=== PATIENT | male | born 1940 | race Caucasian/White ===

== ENCOUNTER 2017-02-15 12:03 | Outpatient (CLI) | payer MEDICARE | END 2017-02-15 12:04 | disposition short-term general hospital (02) | LOC: EMS 12:03 | PROVIDERS: ATTEND Surgery | DX: R06.00 Dyspnea, unspecified (principal); R07.81 Pleurodynia | CPT/HCPCS: A0170; A0425; A0429 ==

== ENCOUNTER 2019-01-20 10:31 | Emergency (ER) | payer MEDICARE, BC ==
--- NOTE | 2019-01-20 11:34 | ED Physician Documentation ---
PD HPI SKIN - Stated complaint Stated Complaint: L SHOULDER/NECK PX - Chief complaint Chief Complaint: Ext Problem - History obtained from History obtained from: Patient PD PAST MEDICAL HISTORY - Past Medical History Past Medical History: No - Past Surgical History Past Surgical History: Yes - Allergies Allergies/Adverse Reactions: Allergies Allergy/AdvReac Type Severity Reaction Status Date / Time No Known Drug Allergies Allergy Verified 01/20/19 10:41 - Social History Does the pt smoke?: No Smoking Status: Never smoker Does the pt drink ETOH?: Yes Does the pt have substance abuse?: No - Immunizations Immunizations: TDAP >10years/unknown Results - Vitals Vitals: Vital Signs - 24 hr 01/20/19 10:37 Temperature 36.3 C L Heart Rate 91 Respiratory 16 Rate Blood Pressure 156/97 H O2 Saturation 97 Oxygen O2 Source Room air
[2019-01-20] MEDS ORDERED: METHOCARBAMOL 500 MG TABLET PO STA (12:10)
[2019-01-20] MEDS ORDERED: NAPROXEN 250 MG TABLET PO STA (12:10)
[2019-01-20] MEDS ORDERED: traMADol 50 MG TABLET PO STA (12:10)
--- NOTE | 2019-01-20 12:10 | ED Physician Documentation ---
PD HPI NECK PAIN - Stated complaint Stated Complaint: L SHOULDER/NECK PX - Chief complaint Chief Complaint: Ext Problem - History obtained from History obtained from: Patient - History of Present Illness Timing - onset: How many days ago (few) Timing - duration: Days (few) Timing - details: Gradual onset, Still present Location: Mid, Lower, Left Quality: Pain, Sharp Associated symptoms: No: Fever, Weakness, Numbness Improves with: Rest, Other (did not take meds for it) Worsened by: Movement (of head and neck, more to side and tipping upward) Contributing factors: Other (he has had lipoma left suprascapular area for 15 years and has slowly increased size. Not acutely bigger and no redness nor direct tenderness of it.). No: Lifting, Twisting, Trauma Similar symptoms before: Has not had sx before Review of Systems Constitutional: denies: Fever, Chills, Myalgias Nose: denies: Rhinorrhea / runny nose, Congestion Throat: denies: Sore throat Respiratory: denies: Cough GI: denies: Nausea, Vomiting Musculoskeletal: reports: Neck pain (left side to left shoulder/scapular area.) Neurologic: denies: Focal weakness, Numbness, Altered mental status, Headache, Head injury PD PAST MEDICAL HISTORY - Past Medical History Past Medical History: No - Past Surgical History Past Surgical History: Yes - Present Medications Home Medications: Ambulatory Orders Medication Instructions Recorded Confirmed Methocarbamol [Robaxin] 500 mg PO TID PRN #20 tablet 01/20/19 Naproxen 500 mg PO BID #20 tablet 01/20/19 Tramadol HCl 50 mg PO Q6H PRN #15 tablet 01/20/19 - Allergies Allergies/Adverse Reactions: Allergies Allergy/AdvReac Type Severity Reaction Status Date / Time No Known Drug Allergies Allergy Verified 01/20/19 10:41 - Social History Does the pt smoke?: No Smoking Status: Never smoker Does the pt drink ETOH?: Yes Does the pt have substance abuse?: No - Immunizations Immunizations: TDAP >10years/unknown PD ED PE NORMAL - Vitals Vital signs reviewed: Yes - General General: Alert and oriented X 3, Well developed/nourished, Other (holding head and neck stiffly. He is jovial and pleasant. Appears uncomfortable with neck movement. Noticeable lipoma/lump left medial supraclavicular area. No redness nor tenderness of the area. ) - HEENT HEENT: Ears normal, Moist mucous membranes, Pharynx benign - Neck Neck: No adenopathy, Other (posterolateral neck tender at trapezius muscle and laterally to suprascapular area. Not tender at the lipoma itself. Bedside U/S showed fatty tissue appearance demarcated in the mass area c/w lipoma. No fluid collection. ) - Cardiac Cardiac: RRR, No murmur - Respiratory Respiratory: Clear bilaterally - Derm Derm: Normal color, Warm and dry, No rash - Neuro Neuro: Alert and oriented X 3, No motor deficit, No sensory deficit, Normal speech Results - Vitals Vitals: Vital Signs - 24 hr 01/20/19 01/20/19 10:37 12:40 Temperature 36.3 C L 37 C Heart Rate 91 85 Respiratory 16 16 Rate Blood Pressure 156/97 H 167/101 H O2 Saturation 97 99 Oxygen O2 Source Room air - Rads (name of study) cervical spine CT Radiology: Prelim report reviewed (mild arthritic changes; no acute process. ), See rad report PD MEDICAL DECISION MAKING - ED course Complexity details: reviewed results (some arthritic changes; no acute bony lesions/fractures. ), considered differential (the lipoma is unrelated and not tender nor infected. Has paracervical muscle pain. Pain not in dermatomal pattern to suggest pinched nerve per se. ), d/w patient Departure - Departure Disposition: 01 Home, Self Care Clinical Impression: Neck pain on left side, Lipoma of left shoulder Condition: Stable Record reviewed to determine appropriate education?: Yes Instructions: ED Neck Pain No Trauma Prescriptions: Methocarbamol [Robaxin] 500 mg PO TID PRN #20 tablet PRN Reason: Spasms Naproxen 500 mg PO BID #20 tablet Tramadol HCl 50 mg PO Q6H PRN #15 tablet PRN Reason: Pain Comments: Your CT scan of the neck showed some arthritis as expected but no significant bony abnormalities. This seems likely muscular pain radiating off to the side in the trapezius area. There may be some element of neck arthritis or disc problem originating it. We could treat this with anti-inflammatories of naproxen twice daily for the next 7 to 10 days. Take it with food. Add Robaxin muscle relaxant for stiffness and spasms. Add Tylenol and/or tramadol if needed for pains. Heat and gentle range of motion for the neck. Recheck if not improved over the next several days to week. Return if worsening. I would anticipate this to improve over the short-term and get better without any ongoing problems. Follow-up if it does not. Discharge Date/Time: 01/20/19 13:36
[2019-01-20 12:40] VITALS: BP 167/101
--- NOTE | 2019-01-20 13:04 | CT Report ---
Reason: left/central neck pain for 3 days Procedure Date: 01/20/2019 Accession Number: [id number] / [id number] Procedure: CT - CERVICAL SPINE WO CPT Code: FULL RESULT: EXAM: CT CERVICAL SPINE WITHOUT CONTRAST DATE: 01/20/2019 12:32 PM. HISTORY: Left/central neck pain for 3 days. COMPARISONS: None. TECHNIQUE: Thin-section axial images were acquired of the cervical spine without contrast. Post-processing: Coronal and sagittal reformats. Other: None. In accordance with CT protocol optimization, one or more of the following dose reduction techniques were utilized for this exam: automated exposure control, adjustment of mA and/or KV based on patient size, or use of iterative reconstructive technique. Moderate multilevel disk space narrowing throughout the cervical spine, most severe in the mid to lower cervical spine. Associated anterior posterior osteophytic spurring. There are hypertrophic changes at the facet articulations bilaterally, most conspicuous at C2-C3 and C3-C4 on the left, with associated narrowing of the neural foramina. There is mild anterior narrowing of the spinal canal secondary to posterior osteophytic spurring at C3-C4 and C4-C5. The imaged portions of the lung apices appear clear. IMPRESSION: Moderate degenerative changes of the mid to lower cervical spine, slightly more conspicuous on the left. RADIA
== END 2019-01-20 13:36 | disposition home or self-care (01) ==
LOC: ED 10:31
DX: M54.2 Cervicalgia (principal); M46.82 Other specified inflammatory spondylopathies, cervical region; D17.22 Benign lipomatous neoplasm of skin and subcutaneous tissue of left arm
CPT/HCPCS: 72125; 99284; A9270

== ENCOUNTER 2020-09-25 20:15 | Outpatient (CLI) | payer MEDICARE, BC | END 2020-09-25 20:16 | disposition critical access hospital (66) | LOC: EMS 20:15 | DX: S01.81XA Laceration without foreign body of other part of head, initial encounter (principal); V18.4XXA Pedal cycle driver injured in noncollision transport accident in traffic accident, initial encounter; Y93.55 Activity, bike riding; Y92.410 Unspecified street and highway as the place of occurrence of the external cause | CPT/HCPCS: A0425; A0427 ==

== ENCOUNTER 2020-09-25 20:49 | Emergency (ER) | payer MEDICARE, BC ==
--- OUTSIDE RECORDS SUMMARY | 2020-09-25 21:09 | EXTERNAL MEDICAL SUMMARY RPT | Continuity of Care Document ---
:1940 Demographics Phone Unavailable Preferred Language Unknown Marital Status Unknown Mu-Ism Affiliation Unknown Race Unknown Ethnic Group Unknown Author Organization [place] Address [address] [phone] Phone Allergies Encounters Medications Problems Results
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
[2020-09-25] MEDS ORDERED: TRANEXAMIC ACID 1,000 MG/10 ML VIAL NAS STA (21:53)
[2020-09-25] MEDS ORDERED: LIDOCAINE 1%-EPI 1:100000 20 ML MDV SUBQ STA (21:55)
[2020-09-26 02:11] VITALS: BP 176/100
--- NOTE | 2020-09-26 10:00 | CT Report ---
PROCEDURE: HEAD WO INDICATIONS: fall, head injury TECHNIQUE: Noncontrast 4.5 mm thick angled axial sections acquired from the foramen magnum to the vertex. For r adiation dose reduction, the following was used: automated exposure control, adjustment of mA and/or kV according to patient size. COMPARISON: None. FINDINGS: Image quality: Excellent. CSF spaces: Basal cisterns are patent. No extra-axial fluid collections. Ventricles are normal in size and shape. Brain: No midline shift. No intracranial masses or hemorrhage. Brown-white matter interface is norm al. Incidental note is made of a cavum of septum pellucidum. This is of likely no clinical consequen ce, when incidentally discovered in isolation. Skull and face: Left forehead/temporal scalp hemorrhage can be seen, with overlying bandaging materi al. No underlying fracture is seen. Calvarium and visualized facial bones are intact, without suspici ous lesions. Sinuses: Visualized sinuses and mastoids are clear. IMPRESSION: No intracranial hemorrhage is seen. No significant intracranial abnormality is seen. Left/temporal scalp hematoma, without an underlying fracture seen. Note: No significant discrepancy from the preliminary report. Reviewed by: Robin Savage MD on 09/26/2020 8:58 AM [facility] Approved by: Robin Savage MD on 09/26/2020 8:58 AM [place] Station ID: [id number]
== END 2020-09-26 02:13 | disposition home or self-care (01) ==
LOC: EDUNIT# → ED 20:49
DX: S09.12XA Laceration of muscle and tendon of head, initial encounter (principal); S01.81XA Laceration without foreign body of other part of head, initial encounter; S01.01XA Laceration without foreign body of scalp, initial encounter; S80.02XA Contusion of left knee, initial encounter; S80.01XA Contusion of right knee, initial encounter; S60.011A Contusion of right thumb without damage to nail, initial encounter; V18.0XXA Pedal cycle driver injured in noncollision transport accident in nontraffic accident, initial encounter; Y93.55 Activity, bike riding
CPT/HCPCS: 12001; 12031; 12052

== ENCOUNTER 2020-10-11 08:00 | Outpatient (CLI) | payer MEDICARE, BC ==
--- NOTE | 2020-10-11 08:53 | XRAY Report ---
PROCEDURE: Tib/Fib LT INDICATIONS: LEG PAIN LEFT TECHNIQUE: 2 views of the tibia and fibula were acquired. COMPARISON: None FINDINGS: Bones: No fractures or dislocations. No suspicious bony lesions. Osteoarthritic changes are noted in left knee joints and tibiotalar joint. Soft tissues: Chondrocalcinosis in medial and lateral femoral tibial compartments are seen. Scattered vascular calcifications are seen in anterior and posterior left lower leg soft tissue. IMPRESSION: No left leg fracture or dislocation. 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 Reviewed by: Matt Lua MD on 10/11/2020 8:52 AM PDT Approved by: Matt Lua MD on 10/11/2020 8:52 AM PDT Station ID: [id number]
--- NOTE | 2020-10-11 09:36 | XRAY Report ---
PROCEDURE: Ankle 3 View LT INDICATIONS: LEFT ANKLE PAIN TECHNIQUE: 3 views of the ankle were acquired. COMPARISON: None. FINDINGS: Bones: No fractures or dislocations. Ankle mortise is normally aligned. No suspicious bony lesions . Soft tissues: No tibiotalar joint effusion. Achilles tendon appears normal. Soft tissue thickening over the medial and lateral malleolus. IMPRESSION: No fracture or dislocation. Soft tissue thickening. If clinical symptoms persist, a foll ow-up examination in 7-10 days, or advanced imaging such as CT or MRI MRI may be helpful. Reviewed by: Cesar Valverde MD on 10/11/2020 9:35 AM PDT Approved by: Cesar Valverde MD on 10/11/2020 9:35 AM PDT Station ID: [id number]
== END 2020-10-11 23:59 | disposition home or self-care (01) ==
LOC: DI.S 08:00
PROVIDERS: ATTEND Physician Assistant
DX: M19.072 Primary osteoarthritis, left ankle and foot (principal); M17.12 Unilateral primary osteoarthritis, left knee; M11.262 Other chondrocalcinosis, left knee